=== PATIENT | female | born 1940 | race Caucasian/White ===

== ENCOUNTER 2017-09-28 14:30 | Emergency (ER) | payer MEDICARE ==
[2017-09-28 16:25] VITALS: BP 143/91
--- NOTE | 2017-09-28 16:49 | UC ---
Throat Pain/Nasal Glen HPI - HPI Summary HPI Summary: 77 y/o female presents to the urgent care c/o sinus congestion, sinus pain w/ green nasal discharge and dry cough for the past 2 weeks. Pt reports pain is 4/ 10 associated w/ BOBO and B/L ear pressure at times. She has Hx of recurrent sinusitis and COPD exacerbations. She has taken OTC meds w/o any improvement of symptoms. Pt denies fever, SOB, chest pain, abdominal pain, N/V/D, dizziness. - History of Current Complaint Chief Complaint: UCRespiratory Stated Complaint: SINUSES,COUGH Time Seen by Provider: 09/28/17 16:34 Hx Obtained From: Patient Hx Last Menstrual Period: n/a Onset/Duration: Gradual Onset, Lasting Weeks - 2 weeks, Still Present, Worse Since - 2 days Severity: Moderate Pain Intensity: 4 Pain Scale Used: 0-10 Numeric Cough: Nonproductive Associated Signs & Symptoms: Positive: Sinus Discomfort, Nasal Discharge - green. Negative: Fever Related History: Seasonal Allergies, Smoking - Epiglottits Risk Factors Epiglottis Risk Factors: Negative - Allergies/Home Medications Allergies/Adverse Reactions: Allergies Allergy/AdvReac Type Severity Reaction Status Date / Time No Known Allergies Allergy Verified 09/28/17 16:26 Home Medications: Home Medications Aspirin TAB* [Aspirin 325 MG TAB*] 325 mg PO DAILY 09/28/17 [History Confirmed 09/28/17] Fluticasone/Vilanterol [Breo Ellipta 200-25 Mcg INH] 1 each IH DAILY 09/28/17 [ History Confirmed 09/28/17] Tiotropium [place] [Spiriva Respimat] 1.25 mcg IN DAILY 09/28/17 [History Confirmed 09/28/17] PMH/Surg Hx/FS Hx/Imm Hx Previously Healthy: Yes Endocrine History: Dyslipidemia Cardiovascular History: Hypertension Respiratory History: COPD - Surgical History Surgical History: Yes Surgery Procedure, Year, and Place: [facility] - Family History Known Family History: Positive: Cardiac Disease, Hypertension - Social History Occupation: Retired Lives: With Family Alcohol Use: None Substance Use Type: None Smoking Status (MU): Light Every Day Tobacco Smoker Type: Cigarettes Amount Used/How Often: 7 cig a day Length of Time of Smoking/Using Tobacco: 60 yrs Have You Smoked in the Last Year: Yes Household Exposure Type: Cigarettes - Immunization History Most Recent Influenza Vaccination: [id number] Review of Systems Constitutional: Negative Skin: Negative ENT: Ear Ache - B/L ear pressure, Nasal Discharge - green, Sinus Congestion, Sinus Pain/Tenderness, Other - +PND Respiratory: Cough - dry Cardiovascular: Negative Gastrointestinal: Negative Genitourinary: Negative Motor: Negative Neurovascular: Negative Musculoskeletal: Negative Neurological: Headache Psychological: Negative Is Patient Immunocompromised?: No All Other Systems Reviewed And Are Negative: Yes Physical Exam - Summary Physical Exam Summary: VITAL SIGNS: Reviewed. GENERAL: Patient is a well developed and nourished female who is sitting comfortable in the examining table. Patient is not in any acute respiratory distress. HEAD AND FACE: No signs of trauma. No ecchymosis, hematomas or skull depressions. B/L frontal and maxillary sinus tenderness on percussion. edematous erythematous nasal mucosa with green discharge, EYES: PERRLA, EOMI x 2, No injected conjunctiva, clear watery eyes, no nystagmus. No photophobia. EARS: Hearing grossly intact. Ear canals and tympanic membranes are within normal limits. MOUTH: Positive pharynx with mild erythema, no exudates,no palatal petechiae. no B/L tonsillar enlargement Uvula in midline. +PND NECK: Supple, trachea is midline, Positive anterior cervical lymphadenopathy, no JVD, no carotid bruit, no c-spine tenderness, neck with full ROM. No meningeal signs, no Kernig's or brudzinskis signs. CHEST: Symmetric, no tenderness at palpation LUNGS: Clear to auscultation bilaterally. No wheezing or crackles. CVS: Regular rate and rhythm, S1 and S2 present, no murmurs or gallops appreciated. ABDOMEN: Soft, non-tender. No signs of distention. No rebound no guarding, and no masses palpated. Bowel sounds are normal. EXTREMITIES: FROM in all major joints, no edema, no cyanosis or clubbing. NEURO: Alert and oriented x 3. No acute neurological deficits. Speech is normal and follows commands. SKIN: Dry and warm Triage Information Reviewed: Yes Vital Signs: Initial Vital Signs Temp 97.8 F 09/28/17 16:24 Pulse 90 09/28/17 16:24 Resp 18 09/28/17 16:24 BP 143/91 09/28/17 16:24 Pulse Ox 97 09/28/17 16:24 Throat Pain/Nasal Course/Dx - Course Course Of Treatment: 77 y/o female presents to the urgent care c/o sinus congestion, sinus pain w/ green nasal discharge and dry cough for the past 2 weeks. Pt reports pain is 4/10 associated w/ BOBO and B/L ear pressure at times. She has Hx of recurrent sinusitis and COPD exacerbations. She has taken OTC meds w/o any improvement of symptoms. Pt denies fever, SOB, chest pain, abdominal pain, N/V/D, dizziness. Hx obtained. Pt w/ Acute bacterial sinusitis on examination. Pt with 2 weeks of symptoms getting worse. Pt Rx Augmentin PO and flonase nasal spray. Pt's BP is elevated today advised to decrease salt in diet, monitor BP and f/u with PCP for further management. Discharge instructions explained to Pt. Advised to Return to the clinic or PCP if symptoms do not improve.Pt understood and agreed with plan of care. - Differential Dx/Diagnosis Differential Diagnosis/HQI/PQRI: Influenza, Otitis Media, Pharyngitis, Sinusitis , Tonsillitis, URI, Other - lower Provider Diagnoses: 1- Acute bacterial sinusitis. 2-Uncontrolled HTN Discharge - Sign-Out/Discharge Documenting (check all that apply): Discharge - Discharge Plan Condition: Stable Disposition: HOME Prescriptions: Amoxicillin/Clavulanate TAB* [Augmentin TAB 875*] 875 mg PO BID #20 tab Fluticasone NASAL SPRAY 50MCG* [Flonase NASAL SPRAY 50MCG*] 2 spray BOTH NARES DAILY #1 btl Patient Education Materials: Sinusitis (ED), Low-Sodium Diet (ED) Referrals: Beverly Amanda MD [Primary Care Provider] - 3 Days Additional Instructions: 1- Please increase fluid intake and rest. take full course of antibiotic to avoid resistance 2-Use Flonase nasal spray as directed to help drain fluid. Also buy saline drops as directed to clear sinuses 3-Return to the clinic or PCP if symptoms do not improve for further management and treatment. 4-Your BP is elevated today. please decrease salt in your diet, monitor BP and if it continues to be elevated please f/u with your PCP for further management - Billing Disposition and Condition Condition: STABLE Disposition: HOME
== END 2017-09-28 16:59 | disposition home or self-care (01) ==
LOC: UCCORT 14:30
DX: J01.90 Acute sinusitis, unspecified (principal); B96.89 Other specified bacterial agents as the cause of diseases classified elsewhere; I10 Essential (primary) hypertension; J44.9 Chronic obstructive pulmonary disease, unspecified
CPT/HCPCS: 99212; G0463

== ENCOUNTER 2017-11-08 15:34 | Emergency (ER) | payer MEDICARE ==
[2017-11-08 15:40] VITALS: BP 167/88
--- NOTE | 2017-11-08 16:45 | UC ---
Respiratory Complaint HPI - HPI Summary HPI Summary: pt presents with 12 hours progressive sob and wheeze. Pt with h/o COPD, continues tobacco use 1/2ppd, no oxygen. Pt states her breathing feels like COPD. + wheeze. + productive cough - unknown color. no fever, chills. No chest pain. no lightheadedness. pt has used her MDI albuterol without much improvement Pt's medications reviewed this visit - History of Current Complaint Chief Complaint: UCRespiratory Stated Complaint: SOB/TROUBLE BREATHING Time Seen by Provider: 11/08/17 16:26 Hx Obtained From: Patient Hx Last Menstrual Period: n/a Onset/Duration: Gradual Onset Timing: Constant Severity Initially: Mild Severity Currently: Mild Pain Intensity: 0 Character: Cough: Productive Associated Signs And Symptoms: Positive: Dyspnea, Wheezing. Negative: Nasal Congestion, Sinus Discomfort - Allergies/Home Medications Allergies/Adverse Reactions: Allergies Allergy/AdvReac Type Severity Reaction Status Date / Time No Known Allergies Allergy Verified 11/08/17 15:41 PMH/Surg Hx/FS Hx/Imm Hx Previously Healthy: Yes Respiratory History: COPD - Surgical History Surgical History: Yes Surgery Procedure, Year, and Place: [facility] - Family History Known Family History: Positive: Cardiac Disease, Hypertension - Social History Occupation: Retired Lives: With Family Alcohol Use: None Substance Use Type: None Smoking Status (MU): Light Every Day Tobacco Smoker Type: Cigarettes Amount Used/How Often: 7 cig a day Length of Time of Smoking/Using Tobacco: 60 yrs Have You Smoked in the Last Year: Yes Household Exposure Type: Cigarettes - Immunization History Most Recent Influenza Vaccination: [id number] Review of Systems Constitutional: Negative Skin: Negative Eyes: Negative Respiratory: Shortness Of Breath, Cough Cardiovascular: Negative Gastrointestinal: Negative Genitourinary: Negative Motor: Negative Neurovascular: Negative Musculoskeletal: Negative All Other Systems Reviewed And Are Negative: Yes Physical Exam Triage Information Reviewed: Yes Appearance: Well-Appearing, Well-Nourished, Other: - coarse cough Vital Signs: Initial Vital Signs Temp 98.6 F 11/08/17 15:37 Pulse 95 11/08/17 15:37 Resp 22 11/08/17 15:37 BP 167/88 11/08/17 15:37 Pulse Ox 99 11/08/17 15:37 Eye Exam: Normal Eyes: Positive: Conjunctiva Clear ENT Exam: Normal ENT: Positive: Normal ENT inspection, Hearing grossly normal - hearing assist device, Nasal congestion Neck exam: Normal Neck: Positive: Supple, Nontender, No Lymphadenopathy Respiratory: Positive: No respiratory distress, No accessory muscle use, Wheezing, Other: - + wheeze, cough, no retractions Cardiovascular Exam: Normal Cardiovascular: Positive: RRR, No Murmur, Pulses Normal Abdominal Exam: Normal Abdomen Description: Positive: Nontender, No Organomegaly, Soft Bowel Sounds: Positive: Present Musculoskeletal Exam: Normal Musculoskeletal: Positive: Strength Intact Neurological Exam: Normal Neurological: Positive: Alert Psychological Exam: Normal Psychological: Positive: Normal Response To Family Skin Exam: Normal UC Diagnostic Evaluation - Laboratory O2 Sat by Pulse Oximetry: 99 - Radiology Xray Interpretation: Positive (See Comments) - IMPRESSION: Radiology Interpretation Completed By: Radiologist Re-Evaluation - Re-Evaluation First Eval Change: Improved - pt states feels better after neb wheezing nearly resolved awaiting CXR report second neb pred anticipate discharge Second Eval Change: Improved - wheeze free pt reports feeling better reviewed CXR with pt - aware must f/u with PCP for futher diagnostics return precautions discussed pred rx MDI Respiratory Course/Dx - Course Course Of Treatment: pt with progressive sob, cough, wheeze today. + COPD. No Oxygen. + MDI at home. will check CXR, neb. likely pred - Differential Dx/Diagnosis Provider Diagnoses: COPD exacerbation. lung nodule Discharge - Sign-Out/Discharge Documenting (check all that apply): Discharge/Admit/Transfer - Discharge Plan Condition: Stable Disposition: HOME Prescriptions: Albuterol/Ipratropium NEB.WERNER* [Duoneb (Albuterol 2.5 MG/Ipratropium 0.5 MG)] 1 neb INH ONCE #1 neb.soln Referrals: Beverly Amanda MD [Primary Care Provider] - Additional Instructions: - stay well hydrated. Drink plenty of non-alcoholic, non-caffinated beverages - take prednisone once daily x 4 days - use your inhaler, 2 puffs every 4 hours today and tomorrow - then every 4 hours as need - Contact your doctor to schedule a follow-up appointment for a re-evaluation and to discuss further testing for the nodule noted on your lung in today's xray - contact your doctor or go to the emergency department if your symptoms worsen or you have any other questions or concerns - Billing Disposition and Condition Condition: STABLE Disposition: HOME
[2017-11-08] MEDS ORDERED: Albuterol/Ipratropium NEB.SOL* Albuterol 2.5 MG/Ipratropium 0.5 MG 3 ML INH ONE ×2 (16:49→17:18)
[2017-11-08] MEDS ORDERED: predniSONE TAB* 20 MG PO ONE (17:17)
--- NOTE | 2017-11-08 17:20 | RAD ---
HISTORY: Cough, wheezing COMPARISONS: March 16, 2015 VIEWS: 4: Frontal dual-energy and lateral views of the chest. FINDINGS: CARDIOMEDIASTINAL SILHOUETTE: The cardiomediastinal silhouette is normal. MONIQUE: The monique are normal. PLEURA: The costophrenic angles are sharp. No pleural abnormalities are noted. LUNG PARENCHYMA: There is hyperinflation with flattening of the diaphragm and expansion of the AP diameter of the chest. There is a 1 cm nodular density overlying the left lower lung field. This is not clearly seen on the previous examination. ABDOMEN: The upper abdomen is clear. There is no subphrenic gas. BONES AND SOFT TISSUES: No bone or soft tissue abnormalities are noted. OTHER: None. IMPRESSION: 1. COPD. 2. 1 CM NODULAR DENSITY OVERLYING LEFT LOWER LUNG FIELD. THIS IS NOT CLEARLY SEEN ON THE MOST RECENT PREVIOUS EXAMINATION. RECOMMEND FURTHER EVALUATION WITH CONTRAST-ENHANCED CT OF THE CHEST IN THE NONACUTE SETTING.
== END 2017-11-08 17:54 | disposition home or self-care (01) ==
LOC: UCCORT 15:34
DX: J44.1 Chronic obstructive pulmonary disease with (acute) exacerbation (principal); R91.1 Solitary pulmonary nodule; F17.210 Nicotine dependence, cigarettes, uncomplicated
CPT/HCPCS: 71046; 99213; A9270-GY; G0463; J7512

== ENCOUNTER 2017-11-23 15:16 | Emergency (ER) | payer MEDICARE ==
[2017-11-23 16:20] VITALS: BP 122/62
--- NOTE | 2017-11-23 16:28 | UC ---
Throat Pain/Nasal [place] HPI - HPI Summary HPI Summary: Pt c/o sudden onset of pain and burning sensation in mouth and white patches on tongue X 2 days. . Pt has been taking oral prednisone, and uses albuterol inhaler and "3 others inhalers" for her COPD. - History of Current Complaint Chief Complaint: UCGeneralIllness Stated Complaint: ORAL COMPLAINT Time Seen by Provider: 11/23/17 16:03 Hx Obtained From: Patient Hx Last Menstrual Period: n/a ?: No Onset/Duration: Sudden Onset, Lasting Days, Still Present, Worse Since - onset Severity: Mild Pain Intensity: 0 Cough: None Associated Signs & Symptoms: Positive: Negative - Epiglottits Risk Factors Epiglottis Risk Factors: Sudden Onset - Allergies/Home Medications Allergies/Adverse Reactions: Allergies Allergy/AdvReac Type Severity Reaction Status Date / Time No Known Allergies Allergy Verified 11/08/17 15:41 Home Medications: Home Medications Furosemide TAB* [Lasix TAB*] 20 mg PO DAILY 11/23/17 [History Confirmed 11/23/17 ] PMH/Surg Hx/FS Hx/Imm Hx Previously Healthy: Yes Respiratory History: COPD, Pneumonia - Surgical History Surgical History: Yes Surgery Procedure, Year, and Place: [facility] - Family History Known Family History: Positive: Cardiac Disease, Hypertension - Social History Occupation: Retired Lives: With Family Alcohol Use: None Substance Use Type: None Smoking Status (MU): Light Every Day Tobacco Smoker Type: Cigarettes Amount Used/How Often: 7 cig a day Length of Time of Smoking/Using Tobacco: 60 yrs Have You Smoked in the Last Year: Yes Household Exposure Type: Cigarettes - Immunization History Most Recent Influenza Vaccination: [id number] Review of Systems Constitutional: Negative Skin: Negative Eyes: Negative ENT: Other - mouth pain Respiratory: Negative Cardiovascular: Negative Gastrointestinal: Negative Genitourinary: Negative Motor: Negative Neurovascular: Negative Musculoskeletal: Negative Neurological: Negative Psychological: Negative Is Patient Immunocompromised?: No All Other Systems Reviewed And Are Negative: Yes Physical Exam Triage Information Reviewed: Yes Appearance: Well-Appearing Vital Signs: Initial Vital Signs Temp 99.1 F 11/23/17 16:11 Pulse 88 11/23/17 16:11 Resp 24 11/23/17 16:11 BP 122/62 11/23/17 16:11 Pulse Ox 98 11/23/17 16:11 Vital Signs Reviewed: Yes Eye Exam: Normal ENT Exam: Other ENT: Positive: Other - thick white patches on tongue Dental: Positive: Other: - has dentures Neck exam: Normal Respiratory Exam: Normal Respiratory: Positive: Decreased breath sounds Cardiovascular Exam: Normal Musculoskeletal Exam: Normal Neurological Exam: Normal Psychological Exam: Normal Skin Exam: Normal Throat Pain/Nasal Course/Dx - Differential Dx/Diagnosis Provider Diagnoses: thrush Discharge - Sign-Out/Discharge Documenting (check all that apply): Discharge/Admit/Transfer - Discharge Plan Condition: Stable Disposition: HOME Prescriptions: Nystatin SUSPENSION* 6 ml MT Q6H #168 ml Patient Education Materials: Oral Candidiasis (ED) Referrals: Beverly Amanda MD [Primary Care Provider] - If Needed - Billing Disposition and Condition Condition: STABLE Disposition: HOME
== END 2017-11-23 16:56 | disposition home or self-care (01) ==
LOC: UCCORT 15:16
DX: B37.0 Candidal stomatitis (principal); F17.210 Nicotine dependence, cigarettes, uncomplicated
CPT/HCPCS: 99212; G0463